=== PATIENT | female | born 1945 | race Caucasian/White ===

== ENCOUNTER → 2019-01-10 | Outpatient (CLI) | payer MEDICARE, OTHER ==
--- NOTE | 2019-01-10 19:08 | US ---
EXAMINATION TYPE: US pelvis complete transvag DATE OF EXAM: 01/10/2019 COMPARISON: NONE CLINICAL HISTORY: Patient has hx of breast ca, she takes tamoxifen, has a feeling of fullness in her bladder. TECHNIQUE: Transvaginal (TV) and Transabdominal (TA) . Transabdominal sonographic images of the pel vis were acquired. Transvaginal sonographic images were medically necessary to better assess the fol lowing anatomy: Uterus Date of LMP: postmenopausal EXAM MEASUREMENTS: Uterus: 8.7 x 4.1 x 3.8 cm Endometrial Stripe: not well visualized due to shadowing Right Ovary: not visualized due to atrophy/overlying bowel gas Left Ovary: not visualized due to atrophy/overlying bowel gas 1. Uterus: fibroid uterus, largest measuring 2.7 x 2.2 x 2.2cm 2. Endometrium: not well visualized due to shadowing 3. Right Ovary: not visualized due to atrophy/overlying bowel gas 4. Left Ovary: not visualized due to atrophy/overlying bowel gas 5. Bilateral Adnexa: wnl 6. Posterior cul-de-sac: wnl IMPRESSION: Fibroid uterus, limited exam
--- NOTE | 2019-01-21 09:59 | MM ---
Reason for exam: screening (asymptomatic). Last mammogram was performed 11 months ago. History: Patient is postmenopausal, has history of breast cancer at age 60, and had first child at age 38. Took other hormone for 7 months. Physical Findings: A clinical breast exam by your physician is recommended on an annual basis and results should be correlated with mammographic findings. MG 3D Scr Caro Unilateral W/Cad CC and MLO view(s) were taken of the left breast. Prior study comparison: February 12, 2018, mammogram, performed at [place]. January 23, 2017, mammogram, performed at [place]. The breast tissue is heterogeneously dense. This may lower the sensitivity of mammography. Benign calcifications in the left breast. No suspicious abnormality. No significant changes when compared with prior studies. ASSESSMENT: Benign, BI-RAD 2 RECOMMENDATION: Routine screening mammogram of the left breast in 1 year.
== END ==
LOC: RADMAMWWP 13:00
PROVIDERS: ATTEND Family Medicine
DX: Z08 Encounter for follow-up examination after completed treatment for malignant neoplasm (principal); Z85.3 Personal history of malignant neoplasm of breast; D25.9 Leiomyoma of uterus, unspecified
CPT/HCPCS: 76830; 76856; 77067

== ENCOUNTER → 2020-06-10 | Outpatient (CLI) | payer MEDICARE, OTHER ==
[2020-06-10 11:16] LABS: MCH 28.7 pg (25.0-35.0); MCHC 31.9 g/dL (31.0-37.0); Mean Platelet Volume 8.1; Platelet Count 301 k/uL (150-450); RBC 4.89 m/uL (3.80-5.40); RDW 13.7 % (11.5-15.5); WBC 7.6 k/uL (3.8-10.6)
[2020-06-10 11:33] LABS: ALT 15 U/L (4-34); AST 24 U/L (14-36); African American GFR (CKD) >90 (>60 ml/min/1.73 sqM); Albumin 4.7 g/dL (3.5-5.0); Alkaline Phosphatase 73 U/L (38-126); Anion Gap 8 mmol/L; Blood Urea Nitrogen 22 mg/dL (7-17); Calcium 10.2 mg/dL (8.4-10.2); Carbon Dioxide 27 mmol/L (22-30); Chloride 105 mmol/L (98-107); Glucose 105 mg/dL (74-99); Non-African American GFR(CKD) 87 (>60 ml/min/1.73 sqM); Potassium 5.2 mmol/L (3.5-5.1); Sodium 140 mmol/L (137-145); Total Bilirubin 0.5 mg/dL (0.2-1.3); Total Protein 7.2 g/dL (6.3-8.2)
--- NOTE | 2020-06-10 12:44 | CT ---
EXAMINATION TYPE: CT abdomen pelvis w con DATE OF EXAM: 06/10/2020 COMPARISON: None HISTORY: Lt lower quad pain CT DLP: 1552 mGycm CONTRAST: CT scan of the abdomen and pelvis is performed with Oral Contrast and with IV Contrast, patient injec lulú with 100 mL of Isovue 300. FINDINGS: LUNG BASES-: No visible nodule. No infiltrate. Small sliding-type hiatal hernia noted. LIVER/GB: No calcified gallstones. There is evidence of hepatic steatosis. No space occupying hepa tic lesion. Biliary tree is of normal caliber. PANCREAS: No inflammation. No distinct mass. SPLEEN: No splenic enlargement. No lesion seen. ADRENALS: No nodule. No thickening. KIDNEYS/BLADDER: No hydronephrosis. No nephrolithiasis. No distinct renal mass. Urinary bladder g rossly unremarkable. BOWEL: Normal appendix. Normal bowel caliber. No inflammation. GENITAL ORGANS: Lobulated uterus may reflect underlying leiomyomatous change. No evidence for adnexa l mass. LYMPH NODES: No greater than 1cm abdominal or pelvic lymph nodes are appreciated. AORTA: No significant abnormality. OSSEOUS STRUCTURES: No significant abnormality is seen. OTHER: Fat-containing umbilical hernia noted. IMPRESSION: 1. No evidence for acute process to account for the patient's symptoms. 2. Fibroid uterus. 3. Fatty liver. 4. Hiatal hernia.
== END | disposition home or self-care (01) ==
LOC: RADCTMAIN 10:15
PROVIDERS: ATTEND Physician Assistant
DX: K76.0 Fatty (change of) liver, not elsewhere classified (principal); K44.9 Diaphragmatic hernia without obstruction or gangrene; D25.9 Leiomyoma of uterus, unspecified; R10.32 Left lower quadrant pain
CPT/HCPCS: 80053; 85027; 74177; 36415; Q9967 ×2

== ENCOUNTER → 2020-06-21 | Outpatient (CLI) | payer MEDICARE, OTHER ==
--- NOTE | 2020-06-21 15:29 | XR ---
EXAMINATION TYPE: XR abdomen 2V DATE OF EXAM: 06/21/2020 CLINICAL HISTORY: Left lower quadrant pain. TECHNIQUE: Supine and upright views of the abdomen are obtained. COMPARISON: CT abdomen and pelvis 11 days ago. FINDINGS: Scattered gas is seen in non-distended stomach and small bowel loops. Gas and fecal mater ial is seen in non-distended colon. Surgical clip along the inferior margin right hepatic lobe liver redemonstrated. Moderate disc space narrowing and spurring L4-L5 level. Occasional scattered pelvic p hlebolith. No pneumoperitoneum. Lung bases are clear. IMPRESSION: Overall nonobstructive bowel gas pattern remains present.
--- NOTE | 2020-06-21 15:35 | US ---
EXAMINATION TYPE: US pelvis complete transvag DATE OF EXAM: 06/21/2020 COMPARISON: CT June 10, 2020 & US January 10, 2019 CLINICAL HISTORY: R10.32 Left lower quadrant pain. TECHNIQUE: Transvaginal (TV) and Transabdominal (TA) . Transabdominal sonographic images of the pel vis were acquired. Transvaginal sonographic images were medically necessary to better assess the fol lowing anatomy: Uterus and ovaries. Date of LMP: Postmenopausal, no HRT. EXAM MEASUREMENTS: Uterus: 8.1 x 3.9 x 5.0 cm Endometrial Stripe: 0.3 cm Right Ovary: not visualized Left Ovary: not visualized 1. Uterus: Anteverted full of fibroids, lobular contour 2. Endometrium: difficult to visualize due to several small fibroids 3. Right Ovary: not visualized 4. Left Ovary: not visualized 5. Bilateral Adnexa: wnl 6. Posterior cul-de-sac: no free fluid Heterogeneous lobulated uterus consistent with underlying fibroids redemonstrated. Endometrial stripe not well visualized presumed not thickened. No free fluid in pelvis. No suspicious adnexal masses bilaterally. Ovaries not identified. IMPRESSION: Persistent fibroid uterus. No acute findings evident.
== END | disposition home or self-care (01) ==
LOC: RADUSWWP 14:15
PROVIDERS: ATTEND Physician Assistant
DX: D25.9 Leiomyoma of uterus, unspecified (principal); R10.32 Left lower quadrant pain
CPT/HCPCS: 74019; 76830; 76856

== ENCOUNTER → 2020-08-30 | Outpatient (CLI) | payer MEDICARE, OTHER ==
--- NOTE | 2020-08-30 16:29 | BD ---
EXAMINATION TYPE: Axial Bone Density DATE OF EXAM: 08/30/2020 COMPARISON: NONE CLINICAL HISTORY: Height: 61 IN Weight: 210 LBS RISK FACTORS HISTORY OF: Active: MODERATE Postmenopausal woman: AGE 60 MEDICATIONS: Thyroid Medications: YES Which medication: SYNTHROID How Lon+ YEARS Osteoporosis Medications: NOT NOW Which medication: Fosamax How Long: TOOK PREVIOUSLY FOR A COUPLE MONTHS Additional Medications: FISH OIL, PAIN MEDS, SYNTHROID Additional History: BREAST CANCER WITH CHEMO EXAM MEASUREMENTS: Bone mineral densitometry was performed using the Apportable System. Bone mineral density as measured about the Lumbar spine is: ----- L1-L4(G/cm2): 1.068 T Score Values are as follows: ----- L2: -1.1 ----- L3: -0.8 ----- L4: -1.0 ----- L1-L4: -0.9 Bone mineral density BASELINE Bone mineral density about the R hip (g/cm2): 1.132 Bone mineral density about the L hip (g/cm2): 1.033 T Score values are as follows: -----R Neck: 0.7 -----L Neck: 0.0 -----R Total: 0.6 -----L Total: 0.3 Bone mineral density BASELINE IMPRESSION: Normal (Values between +1 and -1 indicate normal bone mass). Consider repeating this study in 5 year s or sooner if there is some new clinical indication. NOTE: T-SCORE=SD OF THE YOUNG ADULT MEAN.
--- NOTE | 2020-08-31 09:46 | MM ---
Reason for exam: screening (asymptomatic). Last mammogram was performed 1 year and 8 months ago. History: Patient is postmenopausal, has history of breast cancer at age 60, and had first child at age 38. Mastectomy of the right breast, 2004. Took other hormone for 7 months. Physical Findings: A clinical breast exam by your physician is recommended on an annual basis and results should be correlated with mammographic findings. MG 3D Scr Caro Unilateral W/Cad CC and MLO view(s) were taken of the left breast. Prior study comparison: January 10, 2019, bilateral MG 3d scr caro unilateral w/cad. February 12, 2018, mammogram, performed at [place]. The breast tissue is heterogeneously dense. This may lower the sensitivity of mammography. Stable benign calcifications. There is chronic nodularity in the left breast. No significant changes when compared with prior studies. ASSESSMENT: Benign, BI-RAD 2 RECOMMENDATION: Routine screening mammogram of the left breast in 1 year.
== END | disposition home or self-care (01) ==
LOC: RADMAMWWP 07:30
PROVIDERS: ATTEND Family Medicine
DX: Z12.31 Encounter for screening mammogram for malignant neoplasm of breast (principal); Z13.820 Encounter for screening for osteoporosis
CPT/HCPCS: 77067; 77080

== ENCOUNTER → 2021-05-18 | Outpatient (CLI) | payer MEDICARE, OTHER ==
[2021-05-18 12:16] LABS: INR 0.9 (<1.2); Partial Thromboplastin Time 23.1 sec (22.0-30.0); Prothrombin Time 9.8 sec (9.0-12.0)
== END | disposition home or self-care (01) ==
LOC: LABWHC1 10:30
PROVIDERS: ATTEND Family Medicine
DX: Z01.812 Encounter for preprocedural laboratory examination (principal); R42 Dizziness and giddiness
CPT/HCPCS: 36415; 85610; 85730

== ENCOUNTER → 2021-11-11 | Outpatient (CLI) | payer MEDICARE, OTHER ==
--- NOTE | 2021-11-14 09:53 | MM ---
Reason for exam: screening (asymptomatic). Last mammogram was performed 1 year and 2 months ago. History: Patient is postmenopausal, has history of breast cancer at age 60, and had first child at age 38. Mastectomy of the right breast, 2004. Took other hormone for 7 months. Physical Findings: A clinical breast exam by your physician is recommended on an annual basis and results should be correlated with mammographic findings. MG 3D Scr Caro Unilateral W/Cad CC and MLO view(s) were taken of the left breast. Prior study comparison: August 30, 2020, bilateral MG 3d scr caro unilateral w/cad. January 10, 2019, bilateral MG 3d scr caro unilateral w/cad. The breast tissue is heterogeneously dense. This may lower the sensitivity of mammography. Stable benign calcifications. There is chronic nodularity in the left breast. No significant changes when compared with prior studies. ASSESSMENT: Benign, BI-RAD 2 RECOMMENDATION: Routine screening mammogram of the left breast in 1 year.
== END | disposition home or self-care (01) ==
LOC: RADMAMWWP 10:48
PROVIDERS: ATTEND Family Medicine
DX: Z12.31 Encounter for screening mammogram for malignant neoplasm of breast (principal); Z78.0 Asymptomatic menopausal state
CPT/HCPCS: 77067

== ENCOUNTER → 2021-11-29 | Outpatient (CLI) | payer MEDICARE, OTHER ==
--- NOTE | 2021-11-29 17:50 | US ---
EXAMINATION TYPE: US pelvic limited DATE OF EXAM: 11/29/2021 COMPARISON: NONE CLINICAL HISTORY: 76-year-old female R10.2 PELVIC PAIN. Patient speaks broken French but able to sta te she had hysterectomy 2020, unknow if ovaries remain or not, LLQ pain on going for years TECHNIQUE: TA. Transabdominal sonographic images of the pelvis were acquired. *Patient had TV befor e and did not want that exam today* Date of LMP: 20+ yrs ago FINDINGS: EXAM MEASUREMENTS: Uterus: Surgically absent Right Ovary: not seen, unknown if they remain Left Ovary: not seen, unknow if they remain 1. Uterus: Surgically absent 2. Endometrium: Surgically absent 3. Right Ovary: not seen due to bowel gas, atrophy and or surgical removal 4. Left Ovary: not seen due to bowel gas, atrophy and or surgical removal 5. Bilateral Adnexa: wnl 6. Posterior cul-de-sac: wnl IMPRESSION: Status post hysterectomy. Unable to visualize either ovary. It is not known if these are surgically a bsent or still present. No pelvic free fluid. If pain persists, consider contrast enhanced CT of the abdomen and pelvis.
== END | disposition home or self-care (01) ==
LOC: RADUSWWP 12:20
PROVIDERS: ATTEND Family Medicine
DX: R10.2 Pelvic and perineal pain (principal); Z90.710 Acquired absence of both cervix and uterus
CPT/HCPCS: 76857

== ENCOUNTER → 2022-01-24 | Outpatient (CLI) | payer MEDICARE, OTHER ==
[2022-01-24 11:33] LABS: African American GFR (CKD) >90 (>60 ml/min/1.73 sqM); Blood Urea Nitrogen 21 mg/dL (7-17); Non-African American GFR(CKD) 88 (>60 ml/min/1.73 sqM)
--- NOTE | 2022-01-24 13:48 | CT ---
EXAMINATION TYPE: CT pelvis w con DATE OF EXAM: 01/24/2022 COMPARISON: 06/10/2020 HISTORY: pelvic pain CT DLP: 1700.8 mGycm Automated exposure control for dose reduction was used. CONTRAST: CT scan of the abdomen pelvis is performed with IV Contrast, patient injected with 100 mL of Isovue 3 00. FINDINGS- Visualized bowel gas pattern is nonspecific no obstruction. Bladder is distended. Surgical clips in t he right inguinal region suggesting and there is skin thickening and subcutaneous edema along the low er pelvis. No definite bladder calculi. No pathologic adenopathy. Small fat-containing anterior abdominal wall hernia. Calcification the post erior soft tissues likely related to granuloma. Aorta of normal caliber with atherosclerotic changes. Visualized portions of the liver, spleen, adrenal glands, pancreas, demonstrate no definite abnormal ity. No obvious hydronephrosis within the visualized portions of the kidneys. There is multilevel degenerative disc disease most marked at L4-L5 with multilevel facet arthropathy and suspected foraminal encroachment diverticulosis of the colon. IMPRESSION- 1. Small anterior abdominal wall fat-containing hernia. 2. No acute process over 20%. 3. Nonspecific skin thickening and subcutaneous attenuation in the lower anterior pelvic soft tissues correlate clinically.
== END | disposition home or self-care (01) ==
LOC: RADCTMAIN 10:43
PROVIDERS: ATTEND Family Medicine
DX: K43.9 Ventral hernia without obstruction or gangrene (principal); R23.4 Changes in skin texture
CPT/HCPCS: 82565; 84520; 72193; 36415; Q9967

== ENCOUNTER → 2022-05-07 | Outpatient (CLI) | payer MEDICARE, OTHER ==
--- NOTE | 2022-05-07 10:04 | MR ---
EXAMINATION TYPE: MR brain wo con DATE OF EXAM: 05/07/2022 COMPARISON: None HISTORY: Frequent headaches, history breast cancer. CONTRAST: Performed utilizing 0 mL intravenous Gadavist gadolinium contrast. TECHNIQUE: Multiplanar, multiecho imaging on a 3.0 Shawna magnet is performed through the brain. Stud y is performed within 24 hours of arrival to the hospital. The craniovertebral junction is normal. The pituitary is normal. Diffusion-weighted imaging is performed. No abnormal hyperintensity is present to suggest an acute i ntracranial infarct or acute ischemic change. There are multiple scattered subcortical and deep white matter changes. Larger patches are adjacent t o the occipital horns of the lateral ventricles. These patches potential to be subacute. Consider sub acute ischemic change these locations. Findings are otherwise nonspecific. Microvascular ischemic danisha nge considered. Vasculitis, multiple sclerosis and Lyme disease can be considered. Study is without intravenous contrast which may somewhat limit evaluation for metastasis. No obvious metastasis is identified. Ventricles and sulci are mildly prominent for the patient age. IMPRESSIONS: 1. Subacute ischemic changes may be within the matter changes in the parietal-occipital regions bilat erally. 2. Additional chronic appearing subcortical and deep white matter punctate changes. Some age-related atrophy is present. 3. No obvious metastatic lesions identified. Study is without contrast. Consider follow-up with contr ast for additional evaluation.
== END | disposition home or self-care (01) ==
LOC: RADMRIMAIN 09:15
PROVIDERS: ATTEND Family Medicine
DX: G31.9 Degenerative disease of nervous system, unspecified (principal); I67.82 Cerebral ischemia
CPT/HCPCS: 70551

== ENCOUNTER → 2024-02-06 | Outpatient (CLI) | payer MEDICARE, OTHER ==
--- NOTE | 2024-02-07 17:59 | MM ---
Reason for Exam: Screening (asymptomatic). Last mammogram was performed 2 year(s) and 3 month(s) ago. Patient History: Menarche at age 16. First Full-Term at age 38. Late child-bearing (after 30). Postmenopausal. Breast cancer, right, age 60. 2005, Reduction on the Left side. 2004, Mastectomy on the Right side. Prior Study Comparison: 01/10/2019 Bilateral Screening Mammogram, [facility]. 08/30/2020 Bilateral Screening Mammogram, [facility]. 11/11/2021 Bilateral Screening Mammogram, [facility]. Tissue Density: Left: There are scattered areas of fibroglandular density. Findings: Left breast appears stable. There are scattered benign-appearing calcifications present. Stable focal asymmetries are present. No suspicious groups of microcalcifications, spiculated or lobular masses, architectural distortion or other secondary signs of malignancy are mammographically apparent. Overall Assessment: Benign, BI-RAD 2 Management: Screening Mammogram of the left breast in 1 year. A negative mammogram report should not preclude additional follow up of suspicious palpable abnormalities. Patient should continue monthly self breast exam. A clinical breast exam by your physician is recommended on an annual basis and results should be correlated with mammographic findings. Note on Maddi scores and lifetime risk: 1. A Maddi score greater than 3% is considered moderate risk. If this is the case, consider specialist referral to assess eligibility for a risk reducing agent. 2. If overall lifetime risk for the development of breast cancer is 20% or higher, the patient may qualify for future screening with alternating mammogram and breast MRI. Electronically signed and approved by: Chandler Sanabria D.O. Radiologis
== END | disposition home or self-care (01) ==
LOC: RADMAMWWP 12:32
PROVIDERS: ATTEND Family Medicine
DX: Z12.31 Encounter for screening mammogram for malignant neoplasm of breast (principal); Z78.0 Asymptomatic menopausal state; Z85.3 Personal history of malignant neoplasm of breast; Z90.11 Acquired absence of right breast and nipple
CPT/HCPCS: 77067